=== PATIENT | male | born 1960 | race Hispanic/Latino ===

== ENCOUNTER 2022-02-28 08:54 | Outpatient (CLI) | payer OTHER | END 2022-02-28 08:55 | disposition home or self-care (01) | LOC: CSHLAB 08:54 | PROVIDERS: ATTEND Internal Medicine Gastroenterology | DX: Z20.822 Contact with and (suspected) exposure to COVID-19 (principal) | CPT/HCPCS: 87811 ==

== ENCOUNTER 2022-03-04 08:47 | Day surgery (SDC) | payer OTHER ==
[2022-03-01 10:59] VITALS: BMI 28.1
[2022-03-04] MEDS ORDERED: PROPOFOL 40 ML ONE (11:18)
[2022-03-04] MEDS ORDERED: Lidocaine 2% MPF 10 ML AMP (For Epidural Use) ONE (11:18)
== END 2022-03-04 12:14 | disposition home or self-care (01) ==
LOC: CSHSDC 08:47
PROVIDERS: ATTEND Internal Medicine Gastroenterology
PROC: 0DJD8ZZ Inspection of Lower Intestinal Tract, Via Natural or Artificial Opening Endoscopic (ICD-10-PCS; principal; 2022-03-04)
DX: Z12.11 Encounter for screening for malignant neoplasm of colon (principal); I10 Essential (primary) hypertension; E78.5 Hyperlipidemia, unspecified; E11.9 Type 2 diabetes mellitus without complications; N40.0 Benign prostatic hyperplasia without lower urinary tract symptoms; Z79.82 Long term (current) use of aspirin; Z79.84 Long term (current) use of oral hypoglycemic drugs; Z79.899 Other long term (current) drug therapy; Z20.822 Contact with and (suspected) exposure to COVID-19
CPT/HCPCS: J2704